=== PATIENT | female | born 1945 | race Caucasian/White ===

== ENCOUNTER 2022-05-30 12:19 | Outpatient (CLI) | payer OTHER | END 2022-05-30 12:20 | disposition home or self-care (01) | LOC: CSHRAD 12:19 | PROVIDERS: ATTEND Internal Medicine Rheumatology | DX: M48.062 Spinal stenosis, lumbar region with neurogenic claudication (principal); M54.50 Low back pain, unspecified; R09.89 Other specified symptoms and signs involving the circulatory and respiratory systems; R79.9 Abnormal finding of blood chemistry, unspecified; M51.36 Other intervertebral disc degeneration, lumbar region | CPT/HCPCS: 71046; 72100 ==